=== PATIENT | male | born 1945 | race Caucasian/White ===

== ENCOUNTER → 2019-06-24 14:13 | Outpatient (REF) | payer MEDICARE, SELFPAY | LOC: ANHLAB 14:13 | PROVIDERS: Visit Provider Nurse Practitioner Family | DX: C44.311 Basal cell carcinoma of skin of nose (principal) | CPT/HCPCS: 88305 ==

== ENCOUNTER → 2019-08-12 08:42 | Outpatient (REF) | payer MEDICARE, SELFPAY | LOC: ANHLAB 08:42 | PROVIDERS: Visit Provider Nurse Practitioner Family | DX: C44.311 Basal cell carcinoma of skin of nose (principal) | CPT/HCPCS: 88305; 88331 ==

== ENCOUNTER 2019-09-04 08:34 | Outpatient (CLI) | payer MEDICARE, SELFPAY ==
--- NOTE | ~2019-09-04 | CT_ITS ---
EXAMINATION: CT abdomen pelvis w con DATE: 09/04/2019 09:19 INDICATION: Malignant neoplasm of prostate. TECHNIQUE: Computed tomography (CT) of the abdomen and pelvis was performed with 100 mL Omnipaque 350 intravenous contrast. Automated exposure control and iterative reconstruction technique were employe d. The dose-length product was 750.00 mGy-cm. COMPARISON: None. FINDINGS: The visualized portions of the lung bases demonstrate mild atelectasis. No pleural effusion . The heart size is normal. There are coronary artery calcifications. No pericardial effusion. The li mirtha, gallbladder, spleen, pancreas, and adrenal glands are normal. There is cortical thinning of the kidneys. There are cysts in the kidneys measuring up to 9 mm on the left. The prostate is moderately enlarged. There is diverticulosis of the colon without evidence of diverticulitis. There are no dilat ed loops of bowel. The appendix is normal. There are no pathologically enlarged lymph nodes. There is no free intraperitoneal fluid. There is moderate lumbar spondylosis. IMPRESSION: 1. No evidence of metastatic disease. Reviewed, dictated and finalized at location A.
[2019-09-04 09:05] LABS: Estimated Glomerular Filt Rate > 60
== END 2019-09-04 08:35 | disposition home or self-care (01) ==
LOC: ANHIMG 08:35
PROVIDERS: PCP Internal Medicine; Visit Provider Urology
DX: C61 Malignant neoplasm of prostate (principal)
CPT/HCPCS: 36415; 74177; Q9967

== ENCOUNTER 2020-08-15 08:24 | Outpatient (CLI) | payer MEDICARE, SELFPAY ==
--- NOTE | ~2020-08-15 | NM_ITS ---
EXAMINATION: NM bone scan whole body DATE: 08/15/2020 12:20 INDICATION: Prostate cancer. TECHNIQUE: 24.6 mCi Tc-99m HDP was administered intravenously. Delayed whole-body scintigrams were o btained. COMPARISON: CT abdomen and pelvis 09/04/2019, pelvis MRI 08/15/2020 FINDINGS: There is joint-centered increased activity in the cervical spine, right sternoclavicular aba int, and feet without radiographic comparison, likely osteoarthritis. There is joint-centered increas ed activity in lumbar spine correlating with facet joint osteoarthritis by CT. IMPRESSION: 1. No evidence of metastatic disease. Reviewed, dictated and finalized at location A.
--- NOTE | ~2020-08-15 | MR_ITS ---
EXAMINATION: MR pelvis wo/w con DATE: 08/15/2020 10:18 INDICATION: Prostate cancer. TECHNIQUE: Magnetic resonance imaging (MRI) of the pelvis was performed without and with 19 mL MultiH ance intravenous contrast. Sequences included axial and coronal FS FIESTA, coronal T2-weighted FS FSE , axial T2-weighted FSE, axial STIR FSE, coronal and axial LAVA, axial dual-echo T1-weighted FSPGR, a nd axial DWI. Postcontrast sequences included coronal LAVA-flex and a time course of axial LAVA. COMPARISON: Bone scan 08/15/2020, CT abdomen and pelvis 09/04/2019 FINDINGS: The prostate is moderately enlarged. There is a 3.1 x 1.1 cm fluid collection between the rectum and prostate, likely hematoma. The bladder is markedly distended. There are no pathologically enlarged ly mph nodes. There is no free intraperitoneal fluid. There is no osseous metastatic disease. IMPRESSION: 1. Moderately enlarged prostate. No evidence of metastatic disease. 2. 3.1 x 1.1 cm fluid collection between the rectum and prostate, likely hematoma. Reviewed, dictated and finalized at location A. IMPRESSION: 1. Moderately enlarged prostate. No evidence of metastatic disease. 2. 3.1 x 1.1 cm fluid collection between the rectum and prostate, likely hemato ma.
[2020-08-15 09:19] LABS: Estimated Glomerular Filt Rate > 60
== END 2020-08-15 08:25 | disposition home or self-care (01) ==
PROVIDERS: PCP Internal Medicine; Visit Provider Radiology Radiation Oncology
DX: C61 Malignant neoplasm of prostate (principal)
CPT/HCPCS: 72197; 78306; A9561; A9577

== ENCOUNTER 2021-10-11 11:34 | Day surgery (SDC) | payer MEDICARE, SELFPAY ==
[2021-09-26 11:00] VITALS: BMI 32.1
--- NOTE | 2021-09-26 12:42 | SUR.PREOP ---
PRE-OPERATIVE [address] [address] 1. Report to the Surgery Center Waiting Room, the entrance is the first door on the right after passing through the automatic sliding doors, at time _ 1130 ___on date 10/11/2021___. OR Time:__1300___ . When you arrive, you and your visitor will be screened for Covid prior to entry. A mask is required within the surgery center. 2. Patients may have clear liquids (water, carbonated beverages, clear teas, apple juice) until 3 hours prior to surgery with a maximum of 20 ounces. ? No food from midnight until time of surgery. ? Infants may have breast milk until 4 hours before surgery, formula 6 hours prior to surgery. ? Children will be allowed to drink immediately following surgery. If applicable, please bring a bottle or sippy cup to assist with drinking. Juice, water, soda, and popsicles are readily available. For infants on formula, please bring formula the day of surgery. Pacifiers are allowed. 3. Take the following medications with a SIP of water the morning of surgery: 1. n/a 2. 3. Medications to discontinue per physician order: 1. n/a date to discontinue: 4. No make-up, nail ethiopian, hairspray, perfume, deodorant, or body powder the day of surgery. No jewelry (including any body piercings) or valuables the day of surgery. Please take a shower or bath the night before, or the morning of, surgery with an antibacterial soap. Wear comfortable, loose fitting clothing. Children are encouraged to wear pajamas. ? Jewelry must be removed prior to entering the operating room. Rings and piercings that are not removed will be cut off. The center will not accept responsibility for valuables. Please leave all valuables, including medications, at home the day of surgery. 5. When going home after surgery, a licensed class b driver must drive you home. NO public transportation without another adult. We recommend someone to stay with you, no alcoholic beverages, driving or important decision making for 24 hours after surgery. For pediatric surgeries, we recommend two adults to accompany a child home. (Only one will be allowed into the building with the patient) 6. 1 visitor (over age of 18) will be allowed. The visitor will drop patient off and remain in car until patient is prepared for surgery. Visitor will be called to join patient. Exceptions: Adult of a pediatric patient, patients with intellectual and/or developmental disability or cognitive impairments can accompany patient through-out visit. Visitors will need to be screened prior to coming into the center. Screening will include Covid symptom question checking. Visitor must wear a mask. Visitor will remain in patient?s room for duration of stay. 7. If you or anyone in your household have experienced Covid symptoms in the past week, please notify your surgeon or surgery center at phone number below for possible testing. 8. Follow any additional instructions given by your physician. Telephone instructions given to:____patient-Norm and asked if any additional questions and then verbalized understanding. Patient advised to call surgeon office or the surgery center at [phone] if any additional questions.
--- NOTE | 2021-10-10 08:53 | P.PNAN_ITS ---
Anes - Initial Pre Proc Eval Procedure: Operation Date: 10/11/21 13:00 Proposed Procedures p Esophagogastroduodenoscopy - Aurelio Nunez MD Date/Time: 10/10/21 08:53 Surgeon: Aurelio Nunez MD Pre Op Diagnosis: Dysphagia Patient Data Age: 76 Gender: M Height: 1.7 m Weight: 93 kg Allergies Allergy/AdvReac Type Severity Reaction Status Date / Time No Known Allergies Allergy Verified 10/11/21 11:51 Home Medications Medication Instructions Recorded Confirmed Type amlodipine 10 mg-benazepril 20 mg 1 cap PO DAILY 06/24/19 10/11/21 History capsule triamterene 75 1 tablet PO DAILY 06/24/19 10/11/21 History mg-hydrochlorothiazide 50 mg tablet tamsulosin 0.4 mg capsule 0.4 mg PO DAILY 09/05/21 10/11/21 History Patient hx anesthesia problems: none Family hx anesthesia problems: none Results Review: All pre-operative results and documents have been reviewed as part of the pre- operative evaluation. [facility] Past Medical History Medical History (Updated 10/10/21 @ 08:53 by Alfredo Cisneros DO) GERD (gastroesophageal reflux disease) Hypertension Prostate cancer Surgical History Surgical History History of shoulder surgery 2003 Social History Social History Smoking status: Never smoker Tobacco type: cigarettes Alcohol intake: unknown Substance use: never Living arrangements: with family Spiritual care concerns: No Anes - Eval Final PreProcedure Day of Procedure 10/10/21 08:53 Patient weight: obese Heart: regular rate and rhythm Lungs: clear to auscultation Airway: Mallampati scale class II Neurological: alert and oriented Last oral intake: >/= 8 hours ASA classification: III Emergent: no Anesthetic plan: proceed Anesthesia type and monitoring: general GIVS and standard monitoring Results Review: All pre-operative results and documents have been reviewed as part of the pre- operative evaluation. Informed Consent: The patient's anesthetic plan and its attendant risks and benefits were discussed with the patient/family/POA. Questions were solicited and answers provided to the satisfaction of the patient/family/POA.
--- NOTE | 2021-10-11 11:11 | PM.HPGS ---
History of Present Illness History of Present Illness Consent: Risks, benefits, and alternatives have been discussed and questions answered. Patient agrees to proceed with procedure. Chief complaint: Dysphagia Narrative: Paras Hobson is a 76 year old male he has had some difficulty swallowing.? Particularly meat and other solid foods would cause discomfort as a seems passed very slowly through the substernal area.? He has learned to chew very thoroughly.? He still notices that things sometimes do not go down likely should.? He has not had to stop eating for any significant amount of time.? He does not get heartburn on any regular basis but he was given a prescription for proton pump inhibitor last month which seems to have helped his symptoms.? Review of Systems Review of Systems: All systems reviewed & are unremarkable except as noted in HPI and below PMFSH Past Medical History Medical History (Updated 10/10/21 @ 08:53 by Alfredo Cisneros DO) GERD (gastroesophageal reflux disease) Hypertension Prostate cancer Surgical History Surgical History History of shoulder surgery 2003 Social History Social History Smoking status: Never smoker Tobacco type: cigarettes Alcohol intake: unknown Substance use: never Living arrangements: with family Spiritual care concerns: No Meds Home Medications and Allergies Home Medications Medication Instructions Recorded Confirmed Type amlodipine 10 mg-benazepril 20 mg 1 cap PO DAILY 06/24/19 10/11/21 History capsule triamterene 75 1 tablet PO DAILY 06/24/19 10/11/21 History mg-hydrochlorothiazide 50 mg tablet tamsulosin 0.4 mg capsule 0.4 mg PO DAILY 09/05/21 10/11/21 History Allergies Allergy/AdvReac Type Severity Reaction Status Date / Time No Known Allergies Allergy Verified 10/11/21 11:51 Exam Const: General: alert Orientation/consciousness: patient oriented x3 Resp: Auscultation: clear to auscultation bilaterally Cardio: Rhythm: regular rhythm GI: GI Palp: Yes Soft to palpation and No Tenderness to palpation present (GI) Neuro: General: patient oriented x3 Assessment and Plan Assessment and plan (1) Dysphagia: Code(s): R13.10 - Dysphagia, unspecified Status: Acute Assessment and Plan: EGD with possible biopsy or dilatation or cautery.
[2021-10-11 11:50] VITALS: BP 157/79; PULSE 59; RESP 16; TEMP 36.6; O2SAT 100
[2021-10-11] MEDS: LACTATED RINGERS 1,000 ML 30 ML IV CONT (12:10)
--- NOTE | 2021-10-11 13:18 | SUR.OPER ---
balloon dilatation 18-20 balloon. exp lot# [id number]
[2021-10-11 13:25] VITALS: BP 131/69; PULSE 58; RESP 18; O2SAT 98
[2021-10-11 13:35] VITALS: BP 104/64; PULSE 58; RESP 20; O2SAT 99
== END 2021-10-11 13:55 | disposition home or self-care (01) ==
PROVIDERS: PCP Internal Medicine; Visit Provider Internal Medicine Gastroenterology
PROC: 0DP08DZ Removal of Intraluminal Device from Upper Intestinal Tract, Via Natural or Artificial Opening Endoscopic (ICD-10-PCS; CPT 43247; principal; 2021-10-11 13:00)
DX: K22.2 Esophageal obstruction (principal); R13.10 Dysphagia, unspecified
CPT/HCPCS: 43249; 43239

== ENCOUNTER 2021-10-11 13:00 | Outpatient (NON) | payer MEDICARE, SELFPAY | END 2021-10-11 13:01 | disposition home or self-care (01) | LOC: ANHLAB 10-12 10:53 | PROVIDERS: PCP Internal Medicine; Visit Provider Internal Medicine Gastroenterology | DX: R13.10 Dysphagia, unspecified (principal) | CPT/HCPCS: 88305 ==